=== PATIENT | male | born 1985 | race Caucasian/White ===

== ENCOUNTER 2018-07-12 19:08 | Emergency (ER) | payer OTHER ==
[~2018-07-12] VITALS: Ht 170.2 cm; Wt 83.9 kg
[2018-07-12 19:21] VITALS: BP_SYST 117
[2018-07-12 19:35] LABS: BILIRUBIN,URINE NEGATIVE (NEGATIVE); BLOOD, URINE 1+ (NEGATIVE); CLARITY/URINE HAZY (CLEAR); COLOR,URINE YELLOW (YELLOW); GLUCOSE,URINE NEGATIVE (NEGATIVE); KETONES,URINE NEGATIVE (NEGATIVE); LEUKOCYTE ESTERASE ,URINE 2+ (NEGATIVE); NITRITE, URINE NEGATIVE (NEGATIVE); PROTEIN URINE TRACE (NEGATIVE)
[2018-07-12 19:53] LABS: BACTERIA,URINE FEW /HPF (None Seen); WBC,URINE 50-80 /HPF (0-3)
[2018-07-12 19:54] LABS: MUCUS,URINE None Seen /LPF (None Seen)
--- NOTE | 2018-07-12 20:15 | NUR ---
Patient to ER bed 08 to gown for evaluation. Side rails up. Report given to PHYLLIS Morales
--- NOTE | 2018-07-12 20:20 | NUR ---
Patient complaining of green/yellow discharge to penis with cloudy urine for 5 days. Reports that he has two sexual female partners and does not use protection. Denies any history of STI. Denies any nausea, vomiting or diarrhea. Denies any pain. No other complaints/injuries per patient or as noted. Will continue to monitor.
--- NOTE | 2018-07-12 20:37 | NUR ---
KIKA Orourke at bedside examining patient.
[2018-07-12] MEDS ORDERED: PHENAZOPYRIDINE HCL 100 MG TABLET PO ONE (20:45)
[2018-07-12] MEDS ORDERED: AZITHROMYCIN 250 MG TABLET PO ONE (20:45)
[2018-07-12] MEDS ORDERED: cefTRIAXone 250 MG in LIDOCAINE 1%, 20 ML MDV 0.9 ML IM ONE (20:45)
[2018-07-12 21:05] VITALS: BP_SYST 117
--- NOTE | 2018-07-12 21:05 | NUR ---
Patient given written and verbal discharge instructions and verbalizes understanding. ER MD discussed with patient the results and treatment provided. Patient in stable condition. ID arm band removed. Rx of Cipro and Pyridium given. Patient educated on pain management and to follow up with PMD in 2-3 days. Pain Scale 0/10 Opportunity for questions provided and answered. Medication side effect fact sheet provided.
[2018-07-15 00:35] LABS: CHLAMYDIA TRACHOMATIS NAA Negative (Negative)
== END 2018-07-12 21:05 | disposition home or self-care (01) ==
LOC: SED 19:08
DX: N39.0 Urinary tract infection, site not specified (principal); F17.210 Nicotine dependence, cigarettes, uncomplicated
CPT/HCPCS: 36415; 81000; 86592; 87086; 87491; 87591; 96372; 99284; J0696; J2001; Q0144